=== PATIENT | male | born 1955 | race American Indian/Alaskan Native ===

== ENCOUNTER 2019-12-16 10:35 | Outpatient (CLI) | payer OTHER ==
--- NOTE | 2019-12-16 12:58 | Cat Scan Report ---
CT CHEST WITHOUT CONTRAST, LOW-DOSE SCREENING INDICATION / CLINICAL INFORMATION: LUNG SCREENING/Z87.891Personal history of nicotine dependence. TECHNIQUE Thin section axial imaging performed from the lung apices through the costophrenic sulci. All CT scan s at this location are performed using CT dose reduction for ALARA by means of automated exposure con trol. COMPARISON: None available. FINDINGS: PERIFISSURAL NODULE(S): None. BENIGN NODULE(S) with Specific Calcifications or Fat: None. SOLID NODULE(S): None. PARTIALLY SOLID NODULE(S): None. NONSOLID / GROUND GLASS NODULE(S): None. ENDOBRONCHIAL NODULE(S): None. LUNGS: No acute air space or interstitial disease. PLEURA: No significant pleural effusion. No pneumothorax. HEART: No significant abnormality. CORONARY ARTERIES: No significant calcification. THORACIC AORTA: No significant abnormality. MEDIASTINUM / MODESTO: No significant abnormality. ADDITIONAL FINDINGS: None. UPPER ABDOMEN: Evaluation is limited due to low-dose technique. A hypodense mass inferior to the stom ach and contiguous to the splenic artery is partially included on the exam and measures 5.8 x 5.5 cm. SKELETAL SYSTEM: No significant abnormality. IMPRESSION: 1. Most Suspicious Nodule (if present): No pulmonary nodule. 2. Lung-RADS Category 1: NEGATIVE - Recommended follow-up: Continue annual low dose CT (LDCT) screening in 12 months. - Please see below for additional details. 3. An incidental upper abdominal mass. The location and morphology suggests that it probably originat es from the pancreas. Chronic pancreatic pseudocyst would be within the differential. Recommend addit ional workup of this finding based on clinical findings and past medical history which may or may not include a comparison CT abdomen. Lung-RADS Version 1.1 Assessment Categories (2019) CATEGORY 0: INCOMPLETE - Incomplete exam or Prior chest CT examination(s) being located for comparison - Recommendation: Additional lung cancer screening CT images and/or comparison to prior chest CT exa minations is needed CATEGORY 1: NEGATIVE - No lung nodules OR benign nodules - Recommendation: Continue annual low dose CT (LDCT) screening in 12 months. CATEGORY 2: BENIGN APPEARANCE OR BEHAVIOR - PERIFISSURAL nodule: < 10.0 mm - SOLID nodule: Prior nodule < 6.0 mm or New nodule < 4.0 mm - PARTIALLY SOLID nodule: < 6.0 mm - NONSOLID nodule: < 30 mm or > 30 mm and unchanged or slow growth (< 1.5 mm since last exam) - CATEGORY 3 or 4 nodules unchanged for >= 3 months - Recommendation: Continue annual LDCT screening in 12 months. CATEGORY 3: PROBABLY BENIGN - SOLID nodule: 6.0-7.9 mm at Baseline OR New solid nodule between 4.0-5.9 mm. - PARTIALLY SOLID nodule: >= 6.0 mm with solid component < 6.0 mm OR new < 6.0 mm total diameter - NONSOLID nodule: >= [address] or new - Recommendation: Follow-up LDCT in 6 months. CATEGORY 4A: SUSPICIOUS - SOLID nodule: 8.0-14.9 mm OR Growing < 8.0 mm OR New 6-7.9 mm. - PARTIALLY SOLID nodule: >= 6.0 mm with solid component 6.0-7.9 mm OR New/Growing solid component < 4.0 mm - ENDOBRONCHIAL nodule - Recommendation: Follow-up with LDCT in 3 months; or, PET/CT may be used if there is a solid compon ent to the nodule measuring 8.0 mm or larger. CATEGORY 4B: VERY SUSPICIOUS - Prior SOLID nodule: >= 15.0 mm OR New/Growing component and >= 8.0 mm - PARTIALLY SOLID nodule: solid component >= 8.0 mm OR New/Growing solid component >= 4.0 mm - Recommendation: Follow-up with CT chest with contrast, PET/CT, and or tissue sampling depending on comorbidities and probability of malignancy as determined by the referring clinician. PET/CT may be used when there is a solid component of at least 8.0 mm. For new large nodules that develop on an an nual repeat screening CT, a 1 month LDCT may be recommended to address potentially infectious or infl ammatory conditions. CATEGORY 4X: VERY SUSPICIOUS - CATEGORY 3 or 4 nodules with additional features or imaging findings that increases the suspicion of malignancy. - Recommendation: Follow-up with CT chest with contrast, PET/CT, and or tissue sampling depending on comorbidities and probability of malignancy as determined by the referring clinician. PET/CT may be used when there is a solid component of at least 8.0 mm. For new large nodules that develop on an an nual repeat screening CT, a 1 month LDCT may be recommended to address potentially infectious or infl ammatory conditions. Signer Name: Abilio Danielson MD Signed: 12/16/2019 12:54 PM Workstation Name: [id number]
== END 2019-12-16 10:36 | disposition home or self-care (01) ==
LOC: CT 10:35
PROVIDERS: ATTEND Family Medicine
DX: Z12.2 Encounter for screening for malignant neoplasm of respiratory organs (principal); Z01.89 Encounter for other specified special examinations; Z87.891 Personal history of nicotine dependence
CPT/HCPCS: 71250